=== PATIENT | male | born 1990 | race Caucasian/White ===

== ENCOUNTER 2023-06-01 20:23 | Emergency (ER) | payer OTHER ==
[~2023-06-01] VITALS: Ht 165.1 cm; Wt 72.0 kg
[~2023-06-01 20:23] MED LIST: ALPR2TAB2 PO; IBUP-2030 PO; LAM1 PO; NEOM500T PO; RIFA550T PO
[2023-06-01 20:26] VITALS: BP 132/84; O2SAT 100
[2023-06-01 22:32] VITALS: PULSE 80; RESP 16; TEMP 98.4
== END 2023-06-01 22:30 ==
LOC: ER 20:23
DX: M25.512 Pain in left shoulder (principal); F19.90 Other psychoactive substance use, unspecified, uncomplicated; V98.8XXA Other specified transport accidents, initial encounter; Y93.89 Activity, other specified; Y92.89 Other specified places as the place of occurrence of the external cause; Y99.8 Other external cause status
CPT/HCPCS: 99283